=== PATIENT | male | born 1975 ===

== ENCOUNTER 2025-05-04 16:54 | Emergency (ER) | payer BC, SELFPAY ==
[2025-05-04 16:56] VITALS: BP 146/98
[2025-05-04 17:13] LABS: Hematocrit 44.5 % (39.0-52.0); Hemoglobin 15.4 g/dL (13.0-18.0); Mean Corp Hgb Conc. 34.6 g/dL (33.0-37.0); Mean Corpuscular Volume 90.1 fL (80.0-94.0); Nucleated Red Blood Cells % 0 % (-); Platelet Count 272 10^3/uL (130-400); Red Cell Dist. Width 12.8 % (11.5-14.5)
[2025-05-04 17:27] LABS: ALT (SGPT) 40 U/L (0-50); AST (SGOT) 40 U/L (17-59); Albumin 4.8 g/dl (3.5-5.0); Alkaline Phosphatase 92 U/L (38-126); Blood Urea Nitrogen 22 mg/dl (9-20); Calcium 9.4 mg/dl (8.4-10.2); Carbon Dioxide 24 mmol/L (22-30); Chloride 107 mmol/L (98-107); Glucose 121 mg/dl (70-99); Potassium 4.4 mmol/L (3.5-5.1); Sodium 139 mmol/L (135-145); Total Protein 7.8 g/dl (6.3-8.2); eGFR > 60.00
--- NOTE | 2025-05-04 20:31 | ED.GENMED ---
History of Present Illness
General
Chief Complaint: Skin Problem
Source: patient
Exam Limitations: none
Time Seen by Provider: 05/04/25 20:16
History of Present Illness
History of Present Illness:
49yo right hand dominant male with no significant past medical history presenting for evaluation of left elbow swelling for the past several weeks. He had a brush burn on the elbow initially with some redness. No other trauma reported. He has
been seen by his PCP and was diagnosed with cellulitis. He completed a 10-day course of Bactrim without improvement. He was prescribed doxycycline which he started taking about 4 days ago. The swelling is persistent. The redness and pain do seem
to be improving however. He denies any fevers or chills.
Phy Exam
General Physical Exam
General Presentation: well appearing and no apparent distress
General Skin: warm and dry
General Habitus: normal
General Mental: alert
ENT Exam
ENT Exam: normocephalic
Pulmonary Exam
Pulmonary Exam: no respiratory distress
Meenakshi Coma Scale
Eye Opening: Spontaneous
Verbal Response: Oriented
Motor Response: Obeys Commands
GCS Total Score: 15
Musculoskeletal Exam
Musculoskeletal Exam: full ROM and other (L elbow: Focal swelling noted overlying the olecranon process consistent with bursitis. No fluctuance, drainage, or overlying cellulitis. ROM of elbow is normal. 2+ radial pulse.)
Skin Exam
Skin Exam: normal color and warm/dry
Psychiatric Exam
Psychiatric Exam: normal mood/affect
Course
Orders/Labs/Results
Orders:
Orders
05/04/25 17:06
Complete Blood Count/With Diff Urgent
Comprehensive Metabolic Panel Urgent
05/04/25 20:37
Russell Wrap Left-Treatment ONCE
Abnormal Lab Results
05/04/25
17:06
MCH 31.2 H pg
(27.0-31.0)
Monocytes % 9.6 H %
(1.7-9.3)
BUN 22 H mg/dl
(9-20)
Glucose 121 H mg/dl
(70-99)
05/04/25 17:06
05/04/25 17:06
Vital Signs
Initial and Last Documented VS:
Initial Vital Signs
Temp Pulse Resp BP Pulse Ox
98.1 F 64 18 146/98 99
05/04/25 16:56 05/04/25 16:56 05/04/25 16:56 05/04/25 16:56 05/04/25 16:56
Last Documented Vital Signs
Temp Pulse Resp BP Pulse Ox
98.1 F 61 16 146/98 99
05/04/25 16:56 05/04/25 20:47 05/04/25 20:47 05/04/25 16:56 05/04/25 20:47
MDM/Problems Addressed
Differential Diagnosis Includes:
49yoM here with L elbow swelling x several weeks. Currently on his 2nd course of abx. Denies f/c. VSS. He is well appearing in no distress. Exam is consistent with olecranon bursitis. There is no evidence of overlying cellulitis or septic bursitis.
Lab work obtained in triage and white count is normal. Patient advised to stop taking the antibiotic. Supportive care discussed including compression and NSAIDs. Advised f/u with orthopedics and ED return precautions reviewed.
*Pulse Oximetry
SaO2: 99
Oxygen Mode of Delivery: Room air
Patient hypoxic: no (99%)
*Critical Care Note
Total Time (30-74mins, 75-104mins- exclusive of procedures): Not Applicable
ED Attending Note
-
Portions of this chart may have been created with voice recognition software.� Occasional wrong word or��sound alike� substitutions may have occurred due to the inherent limitations of voice recognition software.
Discharge Plan
Departure
Patient Disposition: Home (Routine Discharge)
Date of Disposition: 05/04/25
Time of Disposition: 20:38
Patient with high blood pressure during this ER visit?: Yes
Discharge Problem:
Olecranon bursitis of left elbow
Instructions: Bursitis - ED discharge instructions
Referrals:
Feroz Gage MD [Active, Orthopedics]
Activity Restrictions/Additional Instructions:
Rest and compress the elbow. Take ibuprofen 600 mg every 6 hours as needed for pain.
Please follow-up with orthopedics. Return to the ER with any worsening symptoms including fevers or chills.
Interventions
Interventions:
*Risk Screen - Suicide Last Done: 05/04/25 16:56
*General Assessment Last Done: 05/04/25 16:56
*Neglect/Abuse Screening Last Done: 05/04/25 16:56
*ED- Fall Risk Assessment Last Done: 05/04/25 20:47
*Nursing Disposition Last Done: 05/04/25 20:47
ED-Skin Assessment Last Done: 05/04/25 20:42
Discharge Date and Time
Discharge Date/Time: 05/04/25 20:48
Print Language: ARMENIAN
== END 2025-05-04 20:48 | disposition home or self-care (01) ==
LOC: EMR 16:54
PROVIDERS: Emergency Medicine; EMERGENCY PHYSICIAN Emergency Medicine; FAMILY PHYSICIAN Family Medicine
DX: M70.22 Olecranon bursitis, left elbow (principal)
CPT/HCPCS: 99283; 80053; 85025

== ENCOUNTER 2025-05-20 06:15 | Day surgery (SDC) | payer BC, SELFPAY ==
[2025-05-20] VITALS (9 sets, daily range): BP systolic 123–151; BP diastolic 63–90; BMI 22.7
[2025-05-20] MEDS: TYLENOL 1000 MG PO (08:54)
[2025-05-20] MEDS: NORMOSOL-R/PLASMALYTE-A 1000 IV (08:54)
== END 2025-05-20 12:26 | disposition home or self-care (01) ==
LOC: SDS 06:15
PROVIDERS: ATTENDING PHYSICIAN Otolaryngology
DX: J34.2 Deviated nasal septum (principal); J34.3 Hypertrophy of nasal turbinates; J34.89 Other specified disorders of nose and nasal sinuses
CPT/HCPCS: 30140; 30520